=== PATIENT | female | born 1990 ===

== ENCOUNTER 2020-06-14 08:44 | Outpatient (REF) | payer MEDICAID, SELFPAY ==
[2020-06-14 19:28] LABS: Abs Immature Grans 0.01 10^3/uL (0.0-0.06); Absolute Basophil Count 0.04 10^3/uL (0.0-0.2); Absolute Eosinophil Count 0.17 10^3/uL (0.0-0.7); Absolute Lymphocyte Count 1.46 10^3/uL (1.2-3.4); Absolute Monocyte Count 0.38 10^3/uL (0.1-0.8); Absolute Neutrophil Count 1.93 10^3/uL (1.2-6.7); Eosinophils % 4.3; HCT 44.3 % (36.0-46.0); HGB 14.5 g/dL (11.2-15.7); Immature Grans % 0.3; Lymphocytes % 36.6; MCH 30.1 pg (27.0-33.0); MCHC 32.7 % (32.0-36.0); MCV 92.1 fL (80-95); MPV 11.9 fL (8.0-11.0); Monocytes % 9.5; Neutrophils % 48.3; Nucleated RBC 0 %; Platelet Count 247 10^3/uL (130-400); RBC 4.81 10^6/uL (3.93-5.22); RDW 11.5 % (11.7-14.6); RDW-SD 38.9 fL; WBC 3.99 10^3/uL (4.4-10.8)
[2020-06-14 19:57] LABS: Iron 95 ug/dL (50-170); Total Iron Binding Capacity 291 ug/dL (250-450); Transferrin Sat 33 % (15-50)
[2020-06-14 20:21] LABS: ALT 16 U/L (14-59); AST 16 U/L (15-37); Albumin 4.2 g/dL (3.4-5.0); Alkaline Phosphatase 48 U/L (46-116); Anion Gap 6.7 mmol/L (3-11); BUN 13 mg/dL (7-18); Bilirubin, Total 0.6 mg/dL (0.2-1.0); CO2 29.3 mmol/L (21.0-32.0); CREATININE 0.93 mg/dL (0.55-1.02); Calcium 9.3 mg/dL (8.5-10.1); Calculated LDL 83 mg/dL (<100); Chloride 102 mmol/L (98-107); Cholesterol 161 mg/dL (<200); Ferritin 62 ng/mL (8-252); Glucose 90 mg/dL (74-106); HDL Cholesterol 71 mg/dL (40-60); Potassium 4.4 mmol/L (3.5-5.1); Sodium 138 mmol/L (136-145); Triglyceride 36 mg/dL (<150)
[2020-07-02 10:32] LABS: Rabies Antibody Endpoint 2.2 IU/mL
== END 2020-06-14 09:04 ==
LOC: NCHCN 08:44
PROVIDERS: PCP Physician Assistant; Visit Provider Physician Assistant
DX: F41.8 Other specified anxiety disorders (principal); E61.1 Iron deficiency; Z13.220 Encounter for screening for lipoid disorders; M79.644 Pain in right finger(s); Z20.3 Contact with and (suspected) exposure to rabies
CPT/HCPCS: 80053; 80061; 86317; 82728; 83540; 83550; 84443; 85025

== ENCOUNTER 2020-12-23 20:11 | Outpatient (REF) | payer MEDICAID, SELFPAY ==
[2020-12-23 19:55] LABS: Anion Gap 8.3 mmol/L (3-11); BUN 15 mg/dL (7-18); CO2 26.7 mmol/L (21.0-32.0); CREATININE 0.9 mg/dL (0.55-1.02); Calcium 8.8 mg/dL (8.5-10.1); Chloride 105 mmol/L (98-107); Glucose 95 mg/dL (74-106); Potassium 4.1 mmol/L (3.5-5.1); Sodium 140 mmol/L (136-145)
[2020-12-23 20:04] LABS: Abs Immature Grans 0.01 10^3/uL (0.0-0.06); Absolute Basophil Count 0.03 10^3/uL (0.0-0.2); Absolute Eosinophil Count 0.36 10^3/uL (0.0-0.7); Absolute Monocyte Count 0.36 10^3/uL (0.1-0.8); Absolute Neutrophil Count 3.33 10^3/uL (1.2-6.7); Basophils % 0.5; Eosinophils % 6.3; HCT 41.2 % (36.0-46.0); HGB 13.6 g/dL (11.2-15.7); Immature Grans % 0.2; Lymphocytes % 28.1; MCH 30.4 pg (27.0-33.0); MCV 92.2 fL (80-95); MPV 11.5 fL (8.0-11.0); Monocytes % 6.3; Neutrophils % 58.6; Nucleated RBC 0 %; Platelet Count 256 10^3/uL (130-400); RBC 4.47 10^6/uL (3.93-5.22); RDW 11.9 % (11.7-14.6); RDW-SD 40.9 fL; WBC 5.69 10^3/uL (4.4-10.8)
== END 2020-12-23 20:12 | disposition home or self-care (01) ==
LOC: NCHCN 20:11
PROVIDERS: PCP Physician Assistant; Visit Provider Physician Assistant
DX: Z01.818 Encounter for other preprocedural examination (principal)
CPT/HCPCS: 80048; 85025

== ENCOUNTER 2021-12-31 20:54 | Outpatient (REF) | payer MEDICAID, SELFPAY ==
[2021-12-31 21:45] LABS: Abs Immature Grans 0.01 10^3/uL (0.0-0.06); Absolute Basophil Count 0.02 10^3/uL (0.0-0.2); Absolute Eosinophil Count 0.17 10^3/uL (0.0-0.7); Absolute Lymphocyte Count 1.41 10^3/uL (1.2-3.4); Absolute Monocyte Count 0.43 10^3/uL (0.1-0.8); Absolute Neutrophil Count 2.53 10^3/uL (1.2-6.7); Basophils % 0.4; Eosinophils % 3.7; HCT 42.7 % (36.0-46.0); HGB 14.1 g/dL (11.2-15.7); Immature Grans % 0.2; Lymphocytes % 30.9; MCH 30.4 pg (27.0-33.0); Monocytes % 9.4; Neutrophils % 55.4; Nucleated RBC 0 %; Platelet Count 259 10^3/uL (130-400); RBC 4.64 10^6/uL (3.93-5.22); RDW 12.3 % (11.7-14.6); RDW-SD 41.2 fL; WBC 4.57 10^3/uL (4.4-10.8)
[2021-12-31 21:57] LABS: Iron 63 ug/dL (50-170); Total Iron Binding Capacity 286 ug/dL (250-450); Transferrin Sat 22 % (15-50)
[2021-12-31 22:10] LABS: ALT 14 U/L (14-59); AST 17 U/L (15-37); Albumin 3.9 g/dL (3.4-5.0); Alkaline Phosphatase 62 U/L (46-116); Anion Gap 7.2 mmol/L (3-11); BUN 15 mg/dL (7-18); Bilirubin, Total 0.4 mg/dL (0.2-1.0); CO2 26.8 mmol/L (21.0-32.0); CREATININE 0.9 mg/dL (0.55-1.02); Calcium 8.5 mg/dL (8.5-10.1); Chloride 104 mmol/L (98-107); Ferritin 47 ng/mL (8-252); Glucose 93 mg/dL (74-106); Potassium 4.2 mmol/L (3.5-5.1); Sodium 138 mmol/L (136-145); Total Protein 6.8 g/dL (6.4-8.2)
== END 2021-12-31 20:55 | disposition home or self-care (01) ==
LOC: NCHCN 20:54
PROVIDERS: PCP Physician Assistant; Visit Provider Physician Assistant
DX: E61.1 Iron deficiency (principal); F41.8 Other specified anxiety disorders; L65.9 Nonscarring hair loss, unspecified
CPT/HCPCS: 80053; 82728; 83540; 83550; 84443; 85025

== ENCOUNTER 2022-06-24 11:00 | Outpatient (REF) | payer MEDICAID, SELFPAY ==
--- NOTE | 2022-06-24 11:30 | PAPFT_PTH ---
PATIENT: Gregoria Hong LOC: [facility] U#:[id number] AGE/SX: 32/F ROOM: RE06/24/[address]: Elsa Brady : 1990 BED: DIS: 06/24/2022 SPEC #: [id number] RECD: 06/25/22 13:16 STATUS: BRITTNEY REJose #: [id number] BRYON: 06/24/22 11:[address]: Elsa Brady DEPT: [facility] Cytology RECD BY: Melissa Morales Tissues: 1 - CX/ENDOCX FOR PAP SMEARS Procedures: PAP THIN PREP/[facility] Screening HPV DNA PROBE Comments: [id number]
== END 2022-06-24 11:01 | disposition home or self-care (01) ==
LOC: NCHCN 11:00
PROVIDERS: PCP Physician Assistant; Visit Provider Physician Assistant
DX: Z12.4 Encounter for screening for malignant neoplasm of cervix (principal); Z11.51 Encounter for screening for human papillomavirus (HPV)
CPT/HCPCS: 88142; 87624

== ENCOUNTER 2024-09-13 10:31 | Outpatient (REF) | payer BC, SELFPAY ==
[2024-09-13 20:22] LABS: Absolute Basophil Count 0.04 10^3/uL (0.0-0.2); Absolute Eosinophil Count 0.13 10^3/uL (0.0-0.7); Absolute Lymphocyte Count 1.29 10^3/uL (1.2-3.4); Absolute Monocyte Count 0.58 10^3/uL (0.1-0.8); Absolute Neutrophil Count 2.12 10^3/uL (1.2-6.7); Eosinophils % 3.1 %; HCT 34.7 % (36.0-46.0); HGB 10.8 g/dL (11.2-15.7); MCH 24.9 pg (27.0-33.0); MCHC 31.1 % (32.0-36.0); MCV 80 fL (80-95); MPV 11.8 fL (8.0-11.0); Monocytes % 13.9 %; Platelet Count 287 10^3/uL (130-400); RBC 4.33 10^6/uL (3.93-5.22); RDW 13.7 % (11.7-14.6); RDW-SD 39.8 fL; WBC 4.16 10^3/uL (4.4-10.8)
[2024-09-13 20:42] LABS: Iron 13 ug/dL (50-170); Total Iron Binding Capacity 414 ug/dL (250-450)
[2024-09-13 21:23] LABS: ALT 17 U/L (14-59); AST 18 U/L (15-37); Albumin 3.9 g/dL (3.4-5.0); Alkaline Phosphatase 56 U/L (46-116); BUN 15 mg/dL (7-18); Bilirubin, Total 0.31 mg/dL (0.2-1.0); Chloride 106 mmol/L (98-107); Cholesterol 166 mg/dL (<200); Estimated GFR 74.88 (mL/min/1.73m2); Ferritin 5 ng/mL (8-252); Glucose 85 mg/dL (74-106); HDL Cholesterol 92 mg/dL (40-60); Potassium 4.3 mmol/L (3.5-5.1); Sodium 140 mmol/L (136-145); Total Protein 7.4 g/dL (6.4-8.2)
[2024-09-13 21:24] LABS: Triglyceride <25 mg/dL (<150)
[2024-09-13 21:34] LABS: LDL CHOLESTEROL 64 mg/dL (<100)
[2024-09-14 18:33] LABS: HIV-1/2 Ag & Ab Screen Negative (Negative)
[2024-09-14 20:32] LABS: Hepatitis C Ab w Rflx HCV PCR Negative (Negative)
== END 2024-09-13 10:32 | disposition home or self-care (01) ==
LOC: NCHCN 10:31
PROVIDERS: PCP Physician Assistant; Visit Provider Physician Assistant
DX: Z11.59 Encounter for screening for other viral diseases (principal); E61.1 Iron deficiency; Z13.220 Encounter for screening for lipoid disorders; Z11.4 Encounter for screening for human immunodeficiency virus [HIV]
CPT/HCPCS: 80053; 80061; 83721; 86803; 87389; 82728; 83540; 83550; 85025

== ENCOUNTER 2025-05-16 17:18 | Outpatient (REF) | payer BC, SELFPAY ==
[2025-05-16 20:59] LABS: Abs Immature Grans 0.00 10^3/uL (0.0-0.06); HCT 45.9 % (36.0-46.0); HGB 15.1 g/dL (11.2-15.7); Immature Grans % 0.0 %; MCH 30.0 pg (27.0-33.0); MCHC 32.9 % (32.0-36.0); MCV 91 fL (80-95); MPV 11.4 fL (8.0-11.0); Platelet Count 269 10^3/uL (130-400); RBC 5.03 10^6/uL (3.93-5.22); RDW 11.9 % (11.7-14.6); RDW-SD 39.8 fL; WBC 4.29 10^3/uL (4.4-10.8)
[2025-05-16 21:10] LABS: Iron 213 ug/dL (50-170); Total Iron Binding Capacity 328 ug/dL (250-450); Transferrin Sat 65 % (15-50)
[2025-05-16 21:44] LABS: Ferritin 36 ng/mL (8-252); TSH (W/Ref FT4) 0.96 uIU/mL (0.36-3.74)
== END 2025-05-16 17:19 | disposition home or self-care (01) ==
LOC: NCHCN 17:18
PROVIDERS: PCP Physician Assistant; Visit Provider Physician Assistant
DX: L65.9 Nonscarring hair loss, unspecified (principal); E61.1 Iron deficiency
CPT/HCPCS: 80053; 82728; 83540; 83550; 84443; 85025